=== PATIENT | female | born 1940 | race Caucasian/White ===

== ENCOUNTER 2017-09-26 12:22 | Inpatient (IN) | payer BC, OTHER ==
[~2017-09-26] VITALS: Ht 165.1 cm; Wt 70.8 kg
--- NOTE | 2017-09-26 12:25 | NUR ---
Dr Alan at the bedside for MSE.
[2017-09-26] MEDS ORDERED: IV NORMAL SALINE 500 ML BAG IV ONE (12:30)
[2017-09-26] MEDS ORDERED: ACETAMINOPHEN ES 500 MG TABLET PO ONE (12:30)
[2017-09-26] MEDS ORDERED: ACETAMINOPHEN ES 500 MG TABLET ONE (12:44)
[2017-09-26 13:00] LABS: BASOPHILS % (AUTO) 0.1 % (0.0-2.0); EOSINOPHILS # (AUTO) 0.1 K/uL (0.0-0.7); EOSINOPHILS % (AUTO) 1.2 % (0.0-7.0); HEMATOCRIT 40.1 % (31.2-41.9); HEMOGLOBIN 13.4 g/dL (10.9-14.3); LYMPHOCYTES # (AUTO) 1.6 K/uL (20.0-40.0); LYMPHOCYTES % (AUTO) 16.7 % (20.5-51.5); MEAN CORPUSCULAR HEMOGLOBIN 30.3 uug (24.7-32.8); MEAN CORPUSCULAR HGB CONC 33 g/dL (32.3-35.6); MEAN CORPUSCULAR VOLUME 90.7 fL (75.5-95.3); MONOCYTES # (AUTO) 0.4 K/uL (2.0-10.0); MONOCYTES % (AUTO) 4.6 % (0.0-11.0); NEUTROPHILS # (AUTO) 7.5 K/uL (1.8-8.9); NEUTROPHILS % (AUTO) 77.4 % (38.5-71.5); PLATELET COUNT (AUTO) 232 K/uL (179-408); RED BLOOD CELL COUNT(AUTO) 4.42 MIL/uL (3.63-4.92); WHITE BLOOD COUNT (AUTO) 9.7 K/uL (3.8-11.8)
[2017-09-26 13:09] LABS: *BILIRUBIN,URIN NEGATIVE (NEGATIVE); *BLOOD, URINE 3+ (NEGATIVE); *CLARITY,URINE CLOUDY (CLEAR); *COLOR,URINE YELLOW (YELLOW); *KETONES,URINE 1+ (NEGATIVE); *PROTEIN,URINE 3+ (NEGATIVE); LEUKOCYTE ESTERASE ,URINE 3+ (NEGATIVE); NITRITE, URINE POSITIVE (NEGATIVE); UGLUCOSE NEGATIVE (NEGATIVE)
[2017-09-26 13:11] LABS: CARBON DIOXIDE 25 mmol/L (21-32); CHLORIDE 102 mmol/L (98-107); GLUCOSE 133 mg/dL (74-106); POTASSIUM 3.8 mmol/L (3.5-5.1); UREA NITROGEN, BLOOD 15 mg/dL (7-18)
[2017-09-26 13:15] LABS: BACTERIA,URINE MODERATE /HPF (NONE SEEN); SQUAMOUS EPITHELIAL CELL,UR MODERATE /HPF (NONE SEEN); WBC,URINE TNTC /HPF (0-3)
[2017-09-26 13:17] LABS: ALANINE AMINOTRANSFERASE 34 U/L (14-59); ALKALINE PHOSPHATASE 82 U/L (50-136); ASPARTATE AMINOTRANSFERASE 50 U/L (15-37); BILIRUBIN,DIRECT 0.2 mg/dL (0.0-0.2); BILIRUBIN,TOTAL 0.8 mg/dL (0.2-1.0); TOTAL PROTEIN, SERUM 7.8 g/dL (6.4-8.2)
[2017-09-26] MEDS ORDERED: CEFTRIAXONE 1 G VIAL ONE (13:25)
[2017-09-26] MEDS ORDERED: CEFTRIAXONE 1 G in IV DEXTROSE 5% 50 ML IV ONE (13:30)
--- NOTE | 2017-09-26 13:31 | NUR ---
Pt is not qualified for MRSA, belonging list completed.
--- NOTE | 2017-09-26 14:14 | NUR ---
Lunch provided, pt ate w/ good appetiet. No c/o pain/ discomfort.
--- NOTE | 2017-09-26 17:30 | NUR ---
PATIENT TRANSFERRED ONTO TELEMETRY FLOOR AT THIS TIME IN STABLE CONDITION, NO S/S OF DISTRESS. VITAL SIGNS STABLE. AFEBRILE. IVF RUNNING. MD CALLED FOR ADMITTING ORDERS. TELEMETRY PLACED - SINUS RHYTHM. AMBULATORY. A/OX4. ADMISSION DOCUMENTATION COMPLETED. COMPLAINS OF PAIN DURING URINATION. WILL CONTINUE TO MONITOR.
[2017-09-26] MEDS: IV NS 1000 ML 1,000 ML IV PRN (18:00)
[2017-09-26 18:14] VITALS: BP 108/53
[2017-09-26] MEDS ORDERED: MAGNESIUM HYDROXIDE 30 ML LIQUID UDC PO PRN (18:45)
[2017-09-26] MEDS ORDERED: ACETAMINOPHEN 325 MG TABLET PO PRN (18:45)
[2017-09-26] MEDS ORDERED: HYDROCODONE/APAP 5-325MG TABLET PO PRN (18:45)
[2017-09-26] MEDS ORDERED: ZOLPIDEM 5 MG TABLET PO PRN (18:45)
[2017-09-26] MEDS ORDERED: Z GUARD REMEDY PASTE 57 GM TUBE TOP PRN (18:45)
[2017-09-26] MEDS ORDERED: ONDANSETRON 4 MG/2 ML VIAL IV PRN (18:45)
[2017-09-26 19:00] VITALS: BP 106/55
--- NOTE | 2017-09-26 20:00 | NUR ---
PATIENT IS AWAKE IN BED, AAOX4 FORGETFUL AT TIMES. DENIES PAIN OR ACUTE DISTRESS ON ASSESSMENT. AFEBRILE , ON TELE WITH SR. NO SOB/CHEST PAIN. SAFETY AND COMFORT MEASURES IN PLACE.
[2017-09-26] MEDS: ENOXAPARIN SODIUM 40 MG/0.4 ML DISP.SYRIN SQ SCH (21:07)
[2017-09-27] VITALS: BP 100/57
[2017-09-27 04:00] VITALS: BP 106/60
[2017-09-27] MEDS: PANTOPRAZOLE SODIUM 40 MG TABLET.DR PO SCH (06:19)
[2017-09-27 06:34] LABS: CARBON DIOXIDE 28 mmol/L (21-32); CHLORIDE 109 mmol/L (98-107); CHOLESTEROL 165 mg/dL (<200); CREATININE 0.9 mg/dL (0.6-1.3); GLUCOSE 92 mg/dL (74-106); HDL CHOLESTEROL 62 mg/dL (40-60); MAGNESIUM 2.3 mg/dL (1.8-2.4); POTASSIUM 3.8 mmol/L (3.5-5.1); TRIGLYCERIDES 54 MG/DL (30-150); UREA NITROGEN, BLOOD 16 mg/dL (7-18)
--- NOTE | 2017-09-27 06:36 | NUR ---
PATIENT SLEPT WELL ON THIS SHIFT. NO C/O PAIN OR ACUTE DISTRESS ON THIS SHIFT. NO FEVER, NO FURTHER CHANGES IN STATUS AT PRESENT
[2017-09-27 06:39] LABS: THYROID STIMULATING HORMONE 0.761 mIU/mL (0.358-3.740)
[2017-09-27 06:40] LABS: BASOPHILS % (AUTO) 0.1 % (0.0-2.0); EOSINOPHILS # (AUTO) 0.1 K/uL (0.0-0.7); EOSINOPHILS % (AUTO) 1.7 % (0.0-7.0); HEMATOCRIT 37.2 % (31.2-41.9); HEMOGLOBIN 12.2 g/dL (10.9-14.3); LYMPHOCYTES # (AUTO) 1.2 K/uL (20.0-40.0); LYMPHOCYTES % (AUTO) 16.5 % (20.5-51.5); MEAN CORPUSCULAR HEMOGLOBIN 30.1 uug (24.7-32.8); MEAN CORPUSCULAR HGB CONC 33 g/dL (32.3-35.6); MEAN CORPUSCULAR VOLUME 91.6 fL (75.5-95.3); MONOCYTES # (AUTO) 0.7 K/uL (2.0-10.0); MONOCYTES % (AUTO) 9.5 % (0.0-11.0); NEUTROPHILS # (AUTO) 5.4 K/uL (1.8-8.9); NEUTROPHILS % (AUTO) 72.2 % (38.5-71.5); PLATELET COUNT (AUTO) 211 K/uL (179-408); RED BLOOD CELL COUNT(AUTO) 4.06 MIL/uL (3.63-4.92); WHITE BLOOD COUNT (AUTO) 7.5 K/uL (3.8-11.8)
--- NOTE | 2017-09-27 07:30 | NUR ---
CONTINUE WITH ROCEPHIN FOR UTI, NO ALLERGY REACTION NOTED
[2017-09-27] MEDS: IV NS 1000 ML 1,000 ML IV PRN ×2 (08:19→23:25)
--- NOTE | 2017-09-27 11:47 | NUR ---
SEEN BY DR BARBER CONTINUE WITH CURRENT TX PLAN
[2017-09-27 11:53] VITALS: BP 108/60
[2017-09-27] MEDS: CEFTRIAXONE 1 G in IV DEXTROSE 5% 50 ML IV SCH (13:54)
--- NOTE | 2017-09-27 15:19 | NUR ---
Pt reassignment and full SBAR report received by KRISTINA Aguilar.
[2017-09-27 15:53] VITALS: BP 116/61
[2017-09-27 19:55] VITALS: BP 120/65
[2017-09-27] MEDS: ENOXAPARIN SODIUM 40 MG/0.4 ML DISP.SYRIN SQ SCH (20:07)
[2017-09-28 04:11] VITALS: BP 119/68
[2017-09-28] MEDS: PANTOPRAZOLE SODIUM 40 MG TABLET.DR PO SCH (06:30)
[2017-09-28 08:00] VITALS: BP 131/80
--- NOTE | 2017-09-28 08:05 | NUR ---
Pt sitting at edge of bed eating breakfast. No s/s of acute distress noted. A&O x4. Denies pain at this time. On Rocephin 1gm IV Q24hrs for UTI. No ase noted. Pt is continent with BRP. Voiding freely. Per pt, her urine is pale yellow now and she is feeling much better. Receiving NS @75ml/hr IVF via LFA 20g IV. No s/s of fluid overload noted. All needs met at this time. Will monitor closely.
[2017-09-28 11:43] VITALS: BP 147/78
[2017-09-28] MEDS: CEFTRIAXONE 1 G in IV DEXTROSE 5% 50 ML IV SCH (12:28)
[2017-09-28] MEDS: IV NS 1000 ML 1,000 ML IV PRN (13:31)
[2017-09-28 16:00] VITALS: BP 122/59
[2017-09-28 20:05] VITALS: BP 151/78
[2017-09-28] MEDS: ENOXAPARIN SODIUM 40 MG/0.4 ML DISP.SYRIN SQ SCH (20:37)
[2017-09-29] MEDS: IV NS 1000 ML 1,000 ML IV PRN (01:44)
[2017-09-29 04:35] VITALS: BP 133/66
[2017-09-29] MEDS: PANTOPRAZOLE SODIUM 40 MG TABLET.DR PO SCH (06:22)
[2017-09-29] MEDS ORDERED: CEPH-570 PO (11:42)
[2017-09-29 12:02] VITALS: BP 172/81
[2017-09-29] MEDS: CEFTRIAXONE 1 G in IV DEXTROSE 5% 50 ML IV SCH (12:21)
--- NOTE | 2017-09-29 12:55 | NUR ---
D/C ORDERS RECEIVED NOTED AND CARRIED OUT.D/C HEPLOCK PER MD ORDERS.D/C INSTRUCTION GIVEN TO THE PT nd pt said she will make her oppientment with her dr murguia,pt left the facility vi aprivate car in stable condition
== END 2017-09-29 12:57 | disposition home or self-care (01) | DRG 690 ==
LOC: ER 12:22 → TELE 16:53 → MED 09-27 20:08
DX: N39.0 Urinary tract infection, site not specified (principal); B96.20 Unspecified Escherichia coli [E. coli] as the cause of diseases classified elsewhere; R31.29 Other microscopic hematuria; R80.9 Proteinuria, unspecified; Z16.12 Extended spectrum beta lactamase (ESBL) resistance; Z90.710 Acquired absence of both cervix and uterus; M77.9 Enthesopathy, unspecified; M19.012 Primary osteoarthritis, left shoulder; R53.1 Weakness
CPT/HCPCS: 36415; 70030-TC; 71045; 83605; 83735; 84100; 84443; 85025; 85730; 87040; 87086; 93005; A4663; A9150; J0696; J1650; J7030; J7060